=== PATIENT | female | born 1965 | race Caucasian/White ===

== ENCOUNTER 2017-12-28 10:57 | Observation (INO) | payer BC ==
[~2017-12-28] VITALS: Ht 160 cm; Wt 54.5 kg
[2017-12-28] VITALS (9 sets, daily range): BP systolic 107–123; BP diastolic 65–69; PULSE 75–101; RESP 18–20; TEMP 97.3–98.2; O2SAT 97–100
[2017-12-28] MEDS ORDERED: METR1TAB76 PO (11:30)
[2017-12-28] MEDS ORDERED: MINO100 PO (11:30)
--- NOTE | 2017-12-28 11:39 | PD ---
HPI Chief Complaint: Cardiac Complaint Time Seen by Provider: 11:22 Travel History International Travel<30 days: No Contact w/Intl Traveler<30days: No Traveled to known affect area: No History of Present Illness HPI 52 y/o female presents with note of burning in her chest and shortness of breath. She states that when it gets bad she also gets tingling to both her fingertips and sometimes to the back of her head. She denies other specific complaints at this time. She states she is undergoing treatment for Lyme disease. She denies family history of heart disease. She denies specific modifying factors. Quality is burning. Severity is moderate. PFSH Past Medical History Medical other: Yes (Lyme Disease) Tetanus Vaccination: < 5 Years Influenza Vaccination: No ?: Not Menopausal: Yes Tubal Ligation: Yes Social History Alcohol Use: No Tobacco Use: No Substance Use: No Allergies-Medications (Allergen,Severity, Reaction): Coded Allergies: No Known Allergies (Unverified , 12/28/17) Reported Meds & Prescriptions Reported Meds & Active Scripts Active Reported Metronidazole 500 Mg Tab 500 Mg PO BID Minocycline (Minocycline HCl) 100 Mg Cap 100 Mg PO BID Review of Systems Except as stated in HPI: all other systems reviewed are Neg Physical Exam Narrative GENERAL: 52-year-old female in no apparent distress SKIN: Focused skin assessment warm/dry. HEAD: Atraumatic. Normocephalic. EYES: Pupils equal and round. No scleral icterus. No injection or drainage. ENT: No nasal bleeding or discharge. Mucous membranes pink and moist. NECK: Trachea midline. No JVD. CARDIOVASCULAR: Regular rate and rhythm. No murmur appreciated. RESPIRATORY: No accessory muscle use. Clear to auscultation. Breath sounds equal bilaterally. GASTROINTESTINAL: Abdomen soft, non-tender, nondistended. MUSCULOSKELETAL: No obvious deformities. No clubbing. No cyanosis. No edema. NEUROLOGICAL: Awake and alert. No obvious cranial nerve deficits. Motor grossly within normal limits. Normal speech. Data Data Last Documented VS Vital Signs Date Time Temp Pulse Resp B/P (MAP) Pulse Ox O2 Delivery O2 Flow Rate FiO2 12/28/17 11:35 92 123/69 (87) 99 Room Air 12/28/17 11:02 97.5 20 Orders Orders Complete Blood Count With Diff (12/28/17 11:01) Ckmb (Isoenzyme) Profile (12/28/17 11:01) Troponin I (12/28/17 11:01) Electrocardiogram (12/28/17 11:22) Ammonia (12/28/17 11:22) Comprehensive Metabolic Panel (12/28/17 11:22) Prothrombin Time / Inr (Pt) (12/28/17 11:22) Act Partial Throm Time (Ptt) (12/28/17 11:22) Urinalysis - C+S If Indicated (12/28/17 11:22) Chest, Single Ap (12/28/17 11:22) Ct Brain W/O Iv Contrast(Rout) (12/28/17 11:22) Ecg Monitoring (12/28/17 11:22) Iv Access Insert/Monitor (12/28/17 11:22) Oximetry (12/28/17 11:22) Drug Screen, Random Urine (12/28/17 11:22) Alcohol (Ethanol) (12/28/17 11:22) Sodium Chlorid 0.9% 500 Ml Inj (Ns 500 M (12/28/17 12:30) Aspirin (Aspirin) (12/28/17 14:15) Sodium Chlorid 0.9% 500 Ml Inj (Ns 500 M (12/28/17 14:15) Admit Order (Ed Use Only) (12/28/17 15:05) Labs Laboratory Tests Test 12/28/17 11:40 12/28/17 14:14 White Blood Count 7.7 TH/MM3 Red Blood Count 5.17 MIL/MM3 Hemoglobin 16.3 GM/DL Hematocrit 46.7 % Mean Corpuscular Volume 90.4 FL Mean Corpuscular Hemoglobin 31.5 PG Mean Corpuscular Hemoglobin Concent 34.8 % Red Cell Distribution Width 11.9 % Platelet Count 296 TH/MM3 Mean Platelet Volume 9.1 FL CBC Comment AUTO DIFF Differential Total Cells Counted 100 Neutrophils % (Manual) 78 % Band Neutrophils % 1 % Lymphocytes % 18 % Monocytes % 2 % Eosinophils % 1 % Neutrophils # (Manual) 6.1 TH/MM3 Differential Comment FINAL DIFF MANUAL Platelet Estimate NORMAL Platelet Morphology Comment NORMAL Prothrombin Time 11.3 SEC Prothromb Time International Ratio 1.1 RATIO Activated Partial Thromboplast Time 28.0 SEC Blood Urea Nitrogen 9 MG/DL Creatinine 0.58 MG/DL Random Glucose 85 MG/DL Total Protein 7.3 GM/DL Albumin 3.9 GM/DL Calcium Level 8.8 MG/DL Alkaline Phosphatase 69 U/L Aspartate Amino Transf (AST/SGOT) 21 U/L Alanine Aminotransferase (ALT/SGPT) 24 U/L Total Bilirubin 0.3 MG/DL Sodium Level 140 MEQ/L Potassium Level 3.5 MEQ/L Chloride Level 103 MEQ/L Carbon Dioxide Level 26.0 MEQ/L Anion Gap 11 MEQ/L Estimat Glomerular Filtration Rate 109 ML/MIN Ammonia 12 MCMOL/L Total Creatine Kinase 57 U/L Troponin I LESS THAN 0.02 NG/ML Ethyl Alcohol Level LESS THAN 3 MG/DL Urine Color YELLOW Urine Turbidity CLEAR Urine pH 8.0 Urine Specific [place] 1.010 Urine Protein NEG mg/dL Urine Glucose (UA) NEG mg/dL Urine Ketones 80 mg/dL Urine Occult Blood SMALL Urine Nitrite NEG Urine Bilirubin NEG Urine Urobilinogen LESS THAN 2.0 MG/DL Urine Leukocyte Esterase NEG Urine RBC 7 /hpf Urine WBC 1 /hpf Urine Mucus FEW /lpf Microscopic Urinalysis Comment CATH-CULT NOT IND Urine Opiates Screen NEG Urine Barbiturates Screen NEG Urine Amphetamines Screen NEG Urine Benzodiazepines Screen NEG Urine Cocaine Screen NEG Urine Cannabinoids Screen NEG MDM Medical Decision Making Medical Screen Exam Complete: Yes Emergency Medical Condition: Yes Medical Record Reviewed: Yes ([facility] confirmed) Interpretation(s) CBC & BMP Diagram 12/28/17 11:40 Total Protein 7.3, Albumin 3.9, Calcium Level 8.8, Alkaline Phosphatase 69, Aspartate Amino Transf (AST/SGOT) 21, Alanine Aminotransferase (ALT/SGPT) 24, Total Bilirubin 0.3 Last [address] 12/28/17 1122 Signed Impressions: Service Date/Time: Thursday, December 28, 2017 11:43 - CONCLUSION: - negative for acute process David Clarke MD FACR Chest X-Ray 12/28/17 112 Signed Impressions: Service Date/Time: Thursday, December 28, 2017 11:33 - CONCLUSION: Normal examination. Armando Freed Jr., MD Differential Diagnosis Musculoskeletal, gastritis, atypical cardiac, electrolyte abnormality.... Narrative Course We will check blood work, chest x-ray, CT brain and monitor ed workup without emergent process, 52-year-old female with chest pain and shortness of breath and tingling to fingertips agrees to [facility] observation for further care, given aspirin Diagnosis Primary Impression: Chest pain Qualified Codes: R07.9 - Chest pain, unspecified Admitting Information Admitting Physician Requests: Observation Cheri Garay MD Dec 28, 2017 11:39
--- NOTE | 2017-12-28 12:00 | RADRPT ---
EXAM DATE/TIME: 12/28/2017 11:33 [facility] COMPARISON: No previous studies available for comparison. INDICATIONS : Rapid heart rate and numbness in upper extremities. MEDICAL HISTORY : No pertinent medical history. SURGICAL HISTORY : No pertinent surgical history. ENCOUNTER: Initial ACUITY: 2 days PAIN SCORE: 0/10 LOCATION: Bilateral chest FINDINGS: A single view of the chest demonstrates the lungs to be symmetrically aerated without evidence of mas s, infiltrate or effusion. The cardiomediastinal contours are unremarkable. Osseous structures are intact. CONCLUSION: Normal examination. Armando Freed Jr., MD on December 28, 2017 at 11:57 Board Certified Radiologist. This report was verified electronically.
--- NOTE | 2017-12-28 12:01 | RADRPT ---
EXAM DATE/TIME: 12/28/2017 11:43 [facility] COMPARISON: No previous studies available for comparison. INDICATIONS : Weakness with tinglining at back of head. Left sided chest pain for 1 week. RADIATION DOSE: 32.52 CTDIvol (mGy) MEDICAL HISTORY : None SURGICAL HISTORY : None. ENCOUNTER: Initial ACUITY: 1 day PAIN SCALE: 0/10 LOCATION: cranial TECHNIQUE: Multiple contiguous axial images were obtained of the head. Using automated exposure control and adj ustment of the mA and/or kV according to patient size, radiation dose was kept as low as reasonably a chievable to obtain optimal diagnostic quality images. DICOM format image data is available electro nically for review and comparison. FINDINGS: CEREBRUM: The ventricles are normal for age. No evidence of midline shift, mass lesion, hemorrhage or acute in farction. No extra-axial fluid collections are seen. POSTERIOR FOSSA: The cerebellum and brainstem are intact. The 4th ventricle is midline. The cerebellopontine angle i s unremarkable. EXTRACRANIAL: The visualized portion of the orbits is intact. SKULL: The calvaria is intact. No evidence of skull fracture. CONCLUSION: - negative for acute process David Clarke MD FACR on December 28, 2017 at 11:58 Board Certified Radiologist. This report was verified electronically.
[2017-12-28 12:22] LABS: HEMATOCRIT 46.7 % (35.0-46.0); HEMOGLOBIN 16.3 GM/DL (11.6-15.3); MEAN CELL VOLUME 90.4 FL (80.0-100.0); MEAN CORPUSCULAR HEMOGLOBIN 31.5 PG (27.0-34.0); MEAN CORPUSCULAR HGB CONC 34.8 % (32.0-36.0); MEAN PLATELET VOLUME 9.1 FL (7.0-11.0); PLATELET COUNT 296 TH/MM3 (150-450); RED BLOOD COUNT 5.17 MIL/MM3 (4.00-5.30); RED CELL DISTRIBUTION WIDTH 11.9 % (11.6-17.2); WHITE BLOOD COUNT 7.7 TH/MM3 (4.0-11.0)
[2017-12-28 12:29] LABS: INTERNATIONAL NORMALIZED RATIO 1.1 RATIO; PROTHROMBIN TIME - PATIENT 11.3 SEC (9.8-11.6)
[2017-12-28] MEDS ORDERED: SODIUM CHLORID 0.9% 500 ML INJ 500 ML IV ONE ×2 (12:30→14:15)
[2017-12-28 12:41] LABS: ALBUMIN 3.9 GM/DL (3.4-5.0); ALT (GPT) 24 U/L (10-53); AST (GOT) 21 U/L (15-37); BLOOD UREA NITROGEN 9 MG/DL (7-18); CALCIUM 8.8 MG/DL (8.5-10.1); CHLORIDE 103 MEQ/L (98-107); CREATININE 0.58 MG/DL (0.50-1.00); GLOMERULAR FILTRATION RATE 109 ML/MIN (>89); GLUCOSE,RANDOM 85 MG/DL (74-106); SODIUM (NA) 140 MEQ/L (136-145)
[2017-12-28 12:43] LABS: ALKALINE PHOSPHATASE 69 U/L (45-117); TOTAL BILIRUBIN ADULT 0.3 MG/DL (0.2-1.0); TOTAL PROTEIN 7.3 GM/DL (6.4-8.2)
[2017-12-28 12:44] LABS: TROPONIN I LESS THAN 0.02 NG/ML (0.02-0.05)
[2017-12-28 13:28] LABS: BANDS 1 % (0-6); LYMPHOCYTES 18 % (9-44); MONOCYTES 2 % (0-8); NEUTROPHIL # MANUAL DIFF 6.1 TH/MM3 (1.8-7.7); POLYS (SEG NEUTROPHILS) 78 % (16-70)
[2017-12-28] MEDS ORDERED: ASPIRIN 325 MG TAB PO ONE (14:15)
[2017-12-28 14:48] LABS: BILIRUBIN, URINE NEG (NEG); BLOOD, URINE SMALL (NEG); GLUCOSE,URINE NEG (NEG); KETONE, URINE 80 mg/dL (NEG); MUCUS URINE FEW /lpf (OCC); NITRITE,URINE NEG (NEG); URINE COLOR YELLOW (YELLW/STRAW); URINE LEUKOCYTE ESTERASE NEG (NEG)
[2017-12-28] MEDS ORDERED: IOHEXOL 350 MG/ML 10 ML VIAL (for RAD DIAG) IVCONTRAST ONE (15:07)
--- NOTE | 2017-12-28 15:54 | HHI.HP ---
HPI Primary Care Physician No Primary Care Physician Chief Complaint Chest pain and dyspnea History of Present Illness 52-year-old female with history of thyroidism and currently treated for Lyme disease presents to emergency room for further evaluation chest pain and dyspnea. Onset one week ago. Unable to lay flat due to dyspnea. Described shallow breathing with every third or fourth breath being deep and painful. Associated symptoms include chest burning and tightness.Severity moderate. Duration constant x1 week. No recent illness. No nausea, vomiting, or diaphoresis. No recent illness, injury, or trauma. Review of Systems General: Currently being treated for lyme disease. Fatigue and generalized malaise x1 week. No fever or chills. HEENT: No LIZ, no vision changes, no nasal congestion or drainage CV: Continues to have constant chest pain as stated above. RESP: x1 week nonexertional dyspnea, no cough, wheeze, hemoptysis, or recent URI GI: No nausea, vomiting, bowel changes : No dysuria, urgency, frequency MS: No discomfort or change in ROM NEURO: No difficulty with balance, LOC, motor/sensory deficits PSYCH: No anxiety, depression SKIN: No rashes, no concerning lesions Past Family Social History Allergies: Coded Allergies: No Known Allergies (Unverified , 12/28/17) Past Medical History Hypothyroidism, Lyme disease Past Surgical History Tubal ligation Reported Medications Reported Meds & Active Scripts Active Reported Metronidazole 500 Mg Tab 500 Mg PO BID Minocycline (Minocycline HCl) 100 Mg Cap 100 Mg PO BID Natural thyroid daily Social History No known diabetes, hypertension, or hyperlipidemia. Lifelong nonsmoker. Past cardiac testing None Physical Exam Vital Signs Vital Signs Date Time Temp Pulse Resp B/P (MAP) Pulse Ox O2 Delivery O2 Flow Rate FiO2 12/28/17 11:35 92 123/69 (87) 99 Room Air 12/28/17 11:29 98 Room Air 12/28/17 11:02 97.5 101 20 113/65 (81) 97 Physical Exam GENERAL: Alert WN, WD, NAD, female HEAD: NC, AT EYES: Sclera clear, conjunctiva without injection, pupils equal and round ENT: Mucous membranes pink and moist NECK: Supple, no masses, trachea midline CV: RRR, without murmur, rub, gallop, no JVD, S1-S2 no S3-S4. Chest wall nontender with palpation. RESP: Clear lungs throughout bilateral, no crackles, wheeze, rhonchi, symmetrical chest rise, nonlabored, able to speak in full sentences ABD: Soft, NT, ND, no masses, positive bowel tones EXT: Pulses +24, no dependent edema MS: Normal tone 4 extremities, no obvious deformities, full range of motion NEURO: CN II through CN XII grossly intact, motor strength 5/5 PSYCH: A+O 3, flat affect, appropriate speech,insight and judgment SKIN: Normal turgor, normal texture, no lesions, no rashes Laboratory Laboratory Tests Test 12/28/17 11:40 12/28/17 14:14 White Blood Count 7.7 Red Blood Count 5.17 Hemoglobin 16.3 Hematocrit 46.7 Mean Corpuscular Volume 90.4 Mean Corpuscular Hemoglobin 31.5 Mean Corpuscular Hemoglobin Concent 34.8 Red Cell Distribution Width 11.9 Platelet Count 296 Mean Platelet Volume 9.1 CBC Comment AUTO DIFF Differential Total Cells Counted 100 Neutrophils % (Manual) 78 Band Neutrophils % 1 Lymphocytes % 18 Monocytes % 2 Eosinophils % 1 Neutrophils # (Manual) 6.1 Differential Comment FINAL DIFF MANUAL Platelet Estimate NORMAL Platelet Morphology Comment NORMAL Prothrombin Time 11.3 Prothromb Time International Ratio 1.1 Activated Partial Thromboplast Time 28.0 Blood Urea Nitrogen 9 Creatinine 0.58 Random Glucose 85 Total Protein 7.3 Albumin 3.9 Calcium Level 8.8 Alkaline Phosphatase 69 Aspartate Amino Transf (AST/SGOT) 21 Alanine Aminotransferase (ALT/SGPT) 24 Total Bilirubin 0.3 Sodium Level 140 Potassium Level 3.5 Chloride Level 103 Carbon Dioxide Level 26.0 Anion Gap 11 Estimat Glomerular Filtration Rate 109 Ammonia 12 Total Creatine Kinase 57 Troponin I LESS THAN 0.02 Ethyl Alcohol Level LESS THAN 3 Urine Color YELLOW Urine Turbidity CLEAR Urine pH 8.0 Urine Specific [place] 1.010 Urine Protein NEG Urine Glucose (UA) NEG Urine Ketones 80 Urine Occult Blood SMALL Urine Nitrite NEG Urine Bilirubin NEG Urine Urobilinogen LESS THAN 2.0 Urine Leukocyte Esterase NEG Urine RBC 7 Urine WBC 1 Urine Mucus FEW Microscopic Urinalysis Comment CATH-CULT NOT IND Urine Opiates Screen NEG Urine Barbiturates Screen NEG Urine Amphetamines Screen NEG Urine Benzodiazepines Screen NEG Urine Cocaine Screen NEG Urine Cannabinoids Screen NEG Result Diagram: 12/28/17 1140 12/28/17 1140 Imaging Last [address] 12/28/17 1122 Signed Impressions: Service Date/Time: Thursday, December 28, 2017 11:43 - CONCLUSION: - negative for acute process David Clarke MD FACR Chest X-Ray 12/28/17 1122 Signed Impressions: Service Date/Time: Thursday, December 28, 2017 11:33 - CONCLUSION: Normal examination. Armando Freed Jr., MD Course EKG Normal Sinus rhythm, normal axis, no ST-T segment changes Caprini VTE Risk Assessment Caprini VTE Risk Assessment: No/Low Risk (score <= 1) Caprini Risk Assessment Model Point Value = 1 Point Value = 2 Point Value = 3 Point Value = 5 Age 41-60 Minor surgery BMI > 25 kg/m2 Swollen legs Varicose veins or History of unexplained or recurrent spontaneous Oral contraceptives or hormone replacement Sepsis (< 1 month) Serious lung disease, including pneumonia (< 1 month) Abnormal pulmonary function Acute myocardial infarction Congestive heart failure (< 1 month) History of inflammatory bowel disease Medical patient at bed rest Age 61-74 Arthroscopic surgery Major open surgery (> 45 min) Laparoscopic surgery (> 45 min) Malignancy Confined to bed (> 72 hours) Immobilizing plaster cast Central venous access Age >= 75 History of VTE Family history of VTE Factor V Leiden Prothrombin [id number] Lupus anticoagulant Anticardiolipin antibodies Elevated serum homocysteine Heparin-induced thrombocytopenia Other congenital or acquired thrombophilia Stroke (< 1 month) Elective arthroplasty Hip, pelvis, or leg fracture Acute spinal cord injury (< 1 month) Prophylaxis Regimen Total Risk Factor Score Risk Level Prophylaxis Regimen 0-1 Low Early ambulation 2 Moderate Order ONE of the following: *Sequential Compression Device (SCD) *Heparin 5000 units SQ BID 3-4 Higher Order ONE of the following medications: *Heparin 5000 units SQ TID *Enoxaparin/Lovenox 40 mg SQ daily (WT < 150 kg, CrCl > 30 mL/min) *Enoxaparin/Lovenox 30 mg SQ daily (WT < 150 kg, CrCl > 10-29 mL/min) *Enoxaparin/Lovenox 30 mg SQ BID (WT < 150 kg, CrCl > 30 mL/min) AND/OR *Sequential Compression Device (SCD) 5 or more Highest Order ONE of the following medications: *Heparin 5000 units SQ TID (Preferred with Epidurals) *Enoxaparin/Lovenox 40 mg SQ daily (WT < 150 kg, CrCl > 30 mL/min) *Enoxaparin/Lovenox 30 mg SQ daily (WT < 150 kg, CrCl > 10-29 mL/min) *Enoxaparin/Lovenox 30 mg SQ BID (WT < 150 kg, CrCl > 30 mL/min) AND *Sequential Compression Device (SCD) Assessment and Plan Assessment and Plan Admitted to chest pain center. Seen and evaluated by Dr. Christiano Espinosa. Rule out ACS with 3 sets of EKGs, cardiac enzymes, and monitored overnight. Presentation atypical cardiac pain, especially due to one week duration. No acute assessment findings, unsure cause of dyspnea and chest pain. Obtain CT pulmonary angiogram, sed rate, and ABGs. Due to uncertainty of symptoms, chest pain physician will assess in morning. This has been discussed with patient and her significant other who are agreeable to plan of care. Mild dehydrated-0.9%NS 100cc/hr. Felicity Leach Dec 28, 2017 15:54
[2017-12-28] MEDS ORDERED: NITROGLYCERIN 0.4 MG SL 25 TABS/BTL SL PRN (16:30)
[2017-12-28] MEDS ORDERED: ONDANSETRON HCL 4 MG/2 ML VIAL IV PUSH PRN (16:30)
[2017-12-28] MEDS ORDERED: ACETAMINOPHEN 500 MG CPLT PO PRN (16:30)
[2017-12-28] MEDS ORDERED: SODIUM CHLORIDE 0.9% FLUSH 10 ML FLUSH IV FLUSH PRN (16:30)
--- NOTE | 2017-12-28 17:01 | RADRPT ---
EXAM DATE/TIME: 12/28/2017 16:15 [facility] COMPARISON: No previous studies available for comparison. INDICATIONS : Left sided chest pain for 1 week. IV CONTRAST: 60 cc Omnipaque 350 (iohexol) IV RADIATION DOSE: 5.78 CTDIvol (mGy) MEDICAL HISTORY : Lyme disease SURGICAL HISTORY : Non-responsive. ENCOUNTER: Initial ACUITY: 1 week PAIN SCALE: 7/10 LOCATION: Left chest TECHNIQUE: Volumetric scanning of the chest was performed using a pulmonary embolism protocol MIP images were re constructed. Using automated exposure control and adjustment of the mA and/or kV according to patien t size, radiation dose was kept as low as reasonably achievable to obtain optimal diagnostic quality images. DICOM format image data is available electronically for review and comparison. Follow-up recommendations for detected pulmonary nodules are based at a minimum on nodule size and pa tient risk factors according to Fleischner Society Guidelines. FINDINGS: PULMONARY ARTERIES: No filling defects are seen in the pulmonary arteries through the segmental level. LUNGS: There is no consolidation or pneumothorax . No concerning pulmonary nodule is visualized. PLEURAE: There is no pleural thickening or pleural effusion. MEDIASTINUM: There is good visualization of the great vessels of the middle mediastinum. No evidence of mediastin al or hilar adenopathy/mass. MUSCULOSKELETAL: Within normal limits for patient age. MISCELLANEOUS: The visualized upper abdominal organs demonstrate no acute abnormality. Suggestion of a punctate ston e in the gallbladder lumen. CONCLUSION: 1. Possible small gallstone in the gallbladder lumen. 2. Otherwise negative. Lungs are clear. No pulmonary embolus. Rasheed Fernández MD on December 28, 2017 at 16:57 Board Certified Radiologist. This report was verified electronically.
[2017-12-28] MEDS: SODIUM CHLOR 0.9% 1000 ML INJ 1,000 ML IV SCH (18:16)
[2017-12-28 18:23] LABS: TROPONIN I LESS THAN 0.02 NG/ML (0.02-0.05)
[2017-12-28 20:57] LABS: TROPONIN I LESS THAN 0.02 NG/ML (0.02-0.05)
[2017-12-28] MEDS: SODIUM CHLORIDE 0.9% FLUSH 10 ML FLUSH IV FLUSH SCH (21:00)
[2017-12-28] MEDS ORDERED: TEMAZEPAM 15 MG CAP PO ONE (21:30)
[2017-12-29] VITALS: PULSE 75
[2017-12-29] MEDS: SODIUM CHLOR 0.9% 1000 ML INJ 1,000 ML IV SCH ×2 (01:32→12:00)
[2017-12-29 03:08] VITALS: BP 102/72; PULSE 76; RESP 18; TEMP 97.9; O2SAT 99
[2017-12-29] MEDS: SODIUM CHLORIDE 0.9% FLUSH 10 ML FLUSH IV FLUSH SCH (08:35)
[2017-12-29 08:44] VITALS: BP 100/61; PULSE 77; RESP 16; TEMP 97.4; O2SAT 98
[2017-12-29] MEDS ORDERED: ASPIRIN 325 MG TAB PO SCH (09:00)
[2017-12-29] MEDS ORDERED: REGADENOSON INJ 0.4 MG/5 ML SYR ONE (09:49)
--- NOTE | 2017-12-29 11:36 | EKG ---
Date Performed: 12/28/2017 Time Performed: 17:53:19 PTAGE: 52 years EKG: Sinus rhythm NORMAL ECG No change PREVIOUS TRACING : 12/28/2017 11.25 DOCTOR: Chaz Richard Interpretating Date/Time 12/29/2017 11:36:02
[2017-12-29 12:22] VITALS: BP 102/59; PULSE 80; RESP 16; TEMP 98; O2SAT 95
--- NOTE | 2017-12-29 12:24 | RADRPT ---
EXAM DATE/TIME: 12/29/2017 09:53 [facility] COMPARISON: No previous studies available for comparison. INDICATIONS : Chest pain. DOSE: 25.2 mCi Tc99m Myoview at stress. 8.5 mCi Tc99m Myoview at rest. 0.4 mg Lexiscan STRESS SYMPTOMS: Shortness of breath, head pressure. EJECTION FRACTION: 70% MEDICAL HISTORY : Hypothyroidism. SURGICAL HISTORY : Tubal ligation. ENCOUNTER: Initial ACUITY: 1 day PAIN SCALE: 3/10 LOCATION: chest TECHNIQUE: The patient underwent pharmacologic stress with infusion of prescribed dose. Continuous ECG tracing was monitored during stress. Gated SPECT imaging was performed after stress and conventional SPECT i maging was performed at rest. The examination was performed on a SPECT/CT scanner, both attenuation and non-corrected datasets were reviewed. FINDINGS: DISTRIBUTION: The maximum perfused segment at stress is in the anterolateral wall wall. PERFUSION STUDY: The pattern of perfusion at stress is within normal limits. GATED STUDY: There is intact wall motion and thickening without hypokinetic or dyskinetic segments. CONCLUSION: Normal examination. No evidence of fixed or stress-induced perfusion abnormalities. Normal wall motion and ejection fraction. RISK CATEGORY: Low (<1% Annual Mortality Rate) Titus Orellana MD on December 29, 2017 at 12:21 Board Certified Radiologist. This report was verified electronically.
--- NOTE | 2017-12-29 14:47 | TR ---
Date Performed: 12/29/2017 Time Performed: 10:19:22 DOCTOR: Chaz Richard DRUG LIST: CLINICAL HISTORY: HAS RO ACS REASON FOR TEST: REASON FOR ENDING: OBSERVATION: CONCLUSION: Lexiscan stress test was performed under standard four minute protocol. Radionuclide was injected one minute prior to ending the test. Mild EKG changes were noted but these were not di agnostic of ischemia. Nuclear imaging and interpretation are pending. COMMENTS:
--- NOTE | 2017-12-29 23:28 | EKG ---
Date Performed: 12/28/2017 Time Performed: 11:25:42 PTAGE: 52 years EKG: Sinus rhythm WITH SHORT VA INTERVAL BORDERLINE ECG NO PREVIOUS TRACING DOCTOR: Andrzej Jackson Interpretating Date/Time 12/29/2017 23:27:12
== END 2017-12-29 13:37 | disposition home or self-care (01) ==
LOC: NEPC 10:57 → NEDA 15:06 → NEPHCDU 17:35
PROVIDERS: ADMIT Internal Medicine Cardiovascular Disease; ATTEND Internal Medicine Cardiovascular Disease
DX: R07.89 Other chest pain (principal); R06.02 Shortness of breath; E86.0 Dehydration; R20.2 Paresthesia of skin; A69.20 Lyme disease, unspecified; E03.9 Hypothyroidism, unspecified
CPT/HCPCS: 70450; 71045; 71275; 78452; 80053; 80307; 81001; 82140; 82550; 83690; 84484; 85007; 85027; 85610; 85652; 85730; 93005; 93017; 96360; 96361; 99285; A9502; G0378; J2785; J7030; J7040; Q9967